=== PATIENT | male | born 1980 | race Two or more races ===

== ENCOUNTER 2016-10-23 22:38 | Emergency (ER) | payer OTHER | END 2016-10-23 22:55 | disposition home or self-care (01) | LOC: ER 22:44 | DX: Z53.21 Procedure and treatment not carried out due to patient leaving prior to being seen by health care provider (principal) ==

== ENCOUNTER 2016-10-24 05:08 | Emergency (ER) | payer OTHER ==
[~2016-10-24] VITALS: Ht 182.9 cm; Wt 83.9 kg
[2016-10-24 05:16] VITALS: BP 123/81
--- NOTE | 2016-10-24 05:56 | NUR ---
PT AMBUALTORY TO ER BED 8 PT STATES HE HAS BEEN HAVING A BUMP ON HIS LEFT NOSTRIL X 8 DAYS. PT AOX4 RR EVEN AND UNLABORED. NO SOB NOTED. NAD NOTED. NO NVD AT THIS TIME. PT NOT DIAPHORETIC. PT WAITING FOR MD PARIKH.
--- NOTE | 2016-10-24 06:03 | NUR ---
DR. PEREA AT BEDSIDE FOR EVAL.
== END 2016-10-24 06:16 | disposition home or self-care (01) ==
LOC: ER 05:11
DX: J34.0 Abscess, furuncle and carbuncle of nose (principal)
CPT/HCPCS: 99283; A4606; Z7610